=== PATIENT | male | born 1965 | race Caucasian/White ===

== ENCOUNTER 2019-03-17 08:02 | Day surgery (SDC) | payer MEDICARE ==
[2019-03-17] MEDS ORDERED: Sodium Chloride 0.9(Preservative Free) 10 ML IJ ONE (08:03)
[2019-03-17] MEDS ORDERED: Depo-Medrol 40 MG/ML IM ONE (08:03)
[2019-03-17] MEDS ORDERED: Ketamine HCl 50 MG/ML ONE (09:42)
[2019-03-17] MEDS ORDERED: DIPRIVAN 200 MG/20 ML IV ONE (09:42)
--- NOTE | 2019-03-17 12:03 | XRAY ---
Indication: Left L4-S1 GUICHO. Intraoperative fluoroscopy was provided for 39 seconds. 3 digital spot images submitted for interpretation demonstrates posterior needle tips projecting over the expected course of the left L4 and L5 nerve roots. Small amount of contrast injected for needle tip placement. Correlate with intraoperative findings/report. Incidental partially visualized posterior spinal hardware bilaterally.
--- NOTE | 2019-03-17 12:34 | XRAY ---
39 seconds fluoroscopy time in surgery for left L4-S1 transforaminal GUICHO.
[2019-03-17] MEDS ORDERED: Lactated Ringers 1,000 ML IV ONE (15:38)
== END 2019-03-17 10:13 | disposition home or self-care (01) ==
LOC: SDC-PAIN 08:02
PROVIDERS: ATTEND Psychiatry & Neurology Pain Medicine
DX: M54.16 Radiculopathy, lumbar region (principal); I10 Essential (primary) hypertension; E11.9 Type 2 diabetes mellitus without complications; J44.9 Chronic obstructive pulmonary disease, unspecified; Z86.718 Personal history of other venous thrombosis and embolism; Z86.73 Personal history of transient ischemic attack (TIA), and cerebral infarction without residual deficits; K21.9 Gastro-esophageal reflux disease without esophagitis; Z79.899 Other long term (current) drug therapy; Z79.01 Long term (current) use of anticoagulants
CPT/HCPCS: 64483; 64484; 72100; 77003; 82962; J1030; J2704; Q9966

== ENCOUNTER 2019-03-31 07:51 | Day surgery (SDC) | payer MEDICARE ==
[2019-03-31] MEDS ORDERED: Xylocaine-Mpf 2% 5 Ml Vial IJ ONE (07:52)
[2019-03-31] MEDS ORDERED: Ketamine HCl 50 MG/ML ONE (09:14)
[2019-03-31] MEDS ORDERED: DIPRIVAN 200 MG/20 ML IV ONE (09:14)
--- NOTE | 2019-03-31 10:17 | XRAY ---
Indication: Right C2-C4 MBB. Intraoperative fluoroscopy was provided for 34 seconds. 3 digital spot images submitted for interpretation demonstrates posterior needle tips projecting over the expected course of the right C2-C4 nerve roots. Correlate with intraoperative findings/report.
--- NOTE | 2019-03-31 10:20 | XRAY ---
34 seconds fluoroscopy time in surgery for right C2-C4 MBB.
[2019-03-31] MEDS ORDERED: Lactated Ringers 1,000 ML IV ONE (14:50)
== END 2019-03-31 09:46 | disposition home or self-care (01) ==
LOC: SDC-PAIN 07:51
PROVIDERS: ATTEND Psychiatry & Neurology Pain Medicine
DX: M47.812 Spondylosis without myelopathy or radiculopathy, cervical region (principal); E11.9 Type 2 diabetes mellitus without complications; I10 Essential (primary) hypertension; J44.9 Chronic obstructive pulmonary disease, unspecified; Z86.73 Personal history of transient ischemic attack (TIA), and cerebral infarction without residual deficits; Z86.718 Personal history of other venous thrombosis and embolism; K21.9 Gastro-esophageal reflux disease without esophagitis; G25.81 Restless legs syndrome; Z79.01 Long term (current) use of anticoagulants; Z79.899 Other long term (current) drug therapy
CPT/HCPCS: 64490; 64491; 72020; 77002; 82962; J2704

== ENCOUNTER 2019-04-21 09:36 | Day surgery (SDC) | payer MEDICARE ==
[2019-04-21] MEDS ORDERED: Decadron 4 MG INJ IV ONE (09:37)
[2019-04-21] MEDS ORDERED: Marcaine 0.5% SDV 10 ML IJ ONE (09:37)
[2019-04-21] MEDS ORDERED: Ketamine HCl 50 MG/ML ONE (10:36)
[2019-04-21] MEDS ORDERED: DIPRIVAN 200 MG/20 ML IV ONE (10:36)
--- NOTE | 2019-04-21 13:03 | XRAY ---
Indication: Right C2-C4 MBB. Intraoperative fluoroscopy was provided for 27 seconds. 2 digital spot images submitted for interpretation demonstrates posterior needle tips projecting over the expected course of the right C2-C4 nerve roots. Correlate with intraoperative findings/report.
--- NOTE | 2019-04-21 13:07 | XRAY ---
27 seconds fluoroscopy time in surgery for right C2-C4 MBB.
[2019-04-21] MEDS ORDERED: Lactated Ringers 1,000 ML IV ONE (13:41)
== END 2019-04-21 11:10 | disposition home or self-care (01) ==
LOC: SDC-PAIN 09:36
PROVIDERS: ATTEND Psychiatry & Neurology Pain Medicine
DX: M47.812 Spondylosis without myelopathy or radiculopathy, cervical region (principal); I10 Essential (primary) hypertension; J44.9 Chronic obstructive pulmonary disease, unspecified; E11.9 Type 2 diabetes mellitus without complications; G25.81 Restless legs syndrome; Z79.899 Other long term (current) drug therapy; Z79.01 Long term (current) use of anticoagulants; Z86.718 Personal history of other venous thrombosis and embolism; Z86.73 Personal history of transient ischemic attack (TIA), and cerebral infarction without residual deficits
CPT/HCPCS: 64490; 64491; 72020; 77002; 82962; J1100; J2704

== ENCOUNTER 2019-06-30 07:48 | Day surgery (SDC) | payer MEDICARE ==
[2019-06-30] MEDS ORDERED: Decadron 4 MG INJ IV ONE (07:49)
[2019-06-30] MEDS ORDERED: Xylocaine 1% Vial 30 ML PF IJ ONE (07:49)
[2019-06-30] MEDS ORDERED: Marcaine 0.5% SDV 10 ML IJ ONE (07:49)
[2019-06-30] MEDS ORDERED: DIPRIVAN 200 MG/20 ML IV ONE (08:26)
[2019-06-30] MEDS ORDERED: Ketamine HCl 50 MG/ML ONE (08:27)
--- NOTE | 2019-06-30 11:52 | XRAY ---
Indication: Right C2-C4 RFA. Intraoperative fluoroscopy was provided for 1 minute 7 seconds. 2 digital spot images submitted for interpretation demonstrates posterior needle tips projecting over the expected course the right C2-C4 nerve roots. Correlate with intraoperative findings/report.
--- NOTE | 2019-06-30 12:06 | XRAY ---
1 minute 8 seconds fluoroscopy time in surgery for right C2-C4 RFA.
[2019-06-30] MEDS ORDERED: Lactated Ringers 1,000 ML IV ONE (14:30)
== END 2019-06-30 10:20 | disposition home or self-care (01) ==
LOC: SDC-PAIN 07:48
PROVIDERS: ATTEND Psychiatry & Neurology Pain Medicine
DX: M47.812 Spondylosis without myelopathy or radiculopathy, cervical region (principal); I10 Essential (primary) hypertension; J44.9 Chronic obstructive pulmonary disease, unspecified; E11.9 Type 2 diabetes mellitus without complications; K21.9 Gastro-esophageal reflux disease without esophagitis; G25.81 Restless legs syndrome; Z86.718 Personal history of other venous thrombosis and embolism; Z79.899 Other long term (current) drug therapy
CPT/HCPCS: 64633; 64634; 72040; 77002; 82962; J1100; J2001; J2704

== ENCOUNTER 2020-05-31 08:53 | Day surgery (SDC) | payer MEDICARE ==
[2020-05-31] MEDS ORDERED: Sodium Chloride 0.9(Preservative Free) 10 ML IJ ONE (08:54)
[2020-05-31] MEDS ORDERED: Xylocaine 1% Vial 30 ML PF IJ ONE (08:54)
[2020-05-31] MEDS ORDERED: Depo-Medrol 40 MG/ML IM ONE (08:54)
[2020-05-31] MEDS ORDERED: DIPRIVAN 200 MG/20 ML IV ONE (09:35)
--- NOTE | 2020-05-31 10:49 | XRAY ---
Indication: Lumbar GUICHO. Intraoperative fluoroscopy provided for 28 seconds. Single digital spot image submitted for interpretation demonstrates midline posterior needle tip projecting approximately S1 level. Small amount of contrast injected for needle tip placement. Correlate with intraoperative findings/report. Incidental partially visualized bilateral posterior spinal hardware.
--- NOTE | 2020-05-31 11:29 | XRAY ---
28 seconds fluoroscopy time in surgery for lumbar GUICHO.
[2020-05-31] MEDS ORDERED: Lactated Ringers 1,000 ML IV ONE (16:09)
== END 2020-05-31 10:15 | disposition home or self-care (01) ==
LOC: SDC-PAIN 08:53
PROVIDERS: ATTEND Psychiatry & Neurology Pain Medicine
DX: M54.16 Radiculopathy, lumbar region (principal); E11.9 Type 2 diabetes mellitus without complications; I10 Essential (primary) hypertension; J44.9 Chronic obstructive pulmonary disease, unspecified; G25.81 Restless legs syndrome; Z86.718 Personal history of other venous thrombosis and embolism; Z86.73 Personal history of transient ischemic attack (TIA), and cerebral infarction without residual deficits; Z79.899 Other long term (current) drug therapy; K21.9 Gastro-esophageal reflux disease without esophagitis; Z79.01 Long term (current) use of anticoagulants
CPT/HCPCS: 62323; 72100; 77003; 82947; J1030; J2001; J2704; Q9966

== ENCOUNTER 2021-02-28 08:00 | Day surgery (SDC) | payer MEDICARE ==
[2021-02-28] MEDS ORDERED: Xylocaine 1% Vial 30 ML PF IJ ONE (08:01)
[2021-02-28] MEDS ORDERED: Decadron 4 MG INJ IV ONE (08:01)
[2021-02-28] MEDS ORDERED: BUPIVACAINE 0.5% VIAL IJ ONE (08:01)
[2021-02-28] MEDS ORDERED: DIPRIVAN 200 MG/20 ML IV ONE ×2 (09:36→10:04)
[2021-02-28] MEDS ORDERED: Lactated Ringers 1,000 ML IV ONE (10:02)
--- NOTE | 2021-02-28 11:07 | XRAY ---
Indication right C2-C4 RFA. Intraoperative fluoroscopy provided for 37 seconds. 2 digital spot image submitted for interpretation demonstrate posterior needle tips projecting over the expected right C2-C4 nerve roots. Correlate with intraoperative findings/report. Incidental partially visualized lower cervical fusion hardware.
--- NOTE | 2021-02-28 12:23 | XRAY ---
37 seconds of fluoroscopy was used in surgery for a C2-C4 RFA.
== END 2021-02-28 10:28 | disposition home or self-care (01) ==
LOC: SDC-PAIN 08:00
PROVIDERS: ATTEND Psychiatry & Neurology Pain Medicine
DX: M47.812 Spondylosis without myelopathy or radiculopathy, cervical region (principal); I10 Essential (primary) hypertension; E11.9 Type 2 diabetes mellitus without complications; Z79.01 Long term (current) use of anticoagulants; Z79.899 Other long term (current) drug therapy
CPT/HCPCS: 64633; 64634; 72040; 77002; 82947; 82962; J1100; J2001; J2704

== ENCOUNTER 2021-10-31 09:32 | Day surgery (SDC) | payer MEDICARE ==
[2021-10-31] MEDS ORDERED: Depo-Medrol 40 MG/ML IM ONE (09:33)
[2021-10-31] MEDS ORDERED: Sodium Chloride 0.9(Preservative Free) 10 ML IJ ONE (09:33)
[2021-10-31] MEDS ORDERED: DIPRIVAN 200 MG/20 ML IV ONE (11:00)
[2021-10-31] MEDS ORDERED: Lactated Ringers 1,000 ML IV ONE (14:27)
--- NOTE | 2021-10-31 18:12 | XRAY ---
Indication: Caudal GUICHO. Intraoperative fluoroscopy provided for 13 seconds. 2 digital spot image submitted for interpretation demonstrates caudal needle tip projecting mid sacrum. Small amount of contrast injected for needle tip placement. Correlate with intraoperative findings/report. Incidental incompletely visualized bilateral lumbosacral fusion hardware.
--- NOTE | 2021-10-31 18:31 | XRAY ---
13 seconds of fluoroscopy was used in surgery for a caudal GUICHO.
== END 2021-10-31 11:22 | disposition home or self-care (01) ==
LOC: SDC-PAIN 09:32
PROVIDERS: ATTEND Psychiatry & Neurology Pain Medicine
DX: M54.16 Radiculopathy, lumbar region (principal); E11.9 Type 2 diabetes mellitus without complications; Z79.899 Other long term (current) drug therapy
CPT/HCPCS: 62323; 72220; 77003; 82947; J1030; J2704; Q9966

== ENCOUNTER 2021-12-05 07:55 | Day surgery (SDC) | payer MEDICARE ==
[2021-12-05] MEDS ORDERED: Marcaine Mpf 0.5% Vial 30 Ml IJ ONE (07:56)
[2021-12-05] MEDS ORDERED: Decadron 4 MG INJ IV ONE (07:56)
[2021-12-05] MEDS ORDERED: Xylocaine 1% Vial 30 ML PF IJ ONE (07:56)
[2021-12-05] MEDS ORDERED: DIPRIVAN 200 MG/20 ML IV ONE (09:34)
--- NOTE | 2021-12-05 10:44 | XRAY ---
Indication: Right C2-C4 RFA. Intraoperative fluoroscopy provided for 31 seconds. 3 digital spot image submitted for interpretation demonstrates posterior needle tips projecting over the expected right C2-C4 nerve roots. Correlate with intraoperative findings/report. Incidental partially visualized lower cervical fusion hardware.
[2021-12-05] MEDS ORDERED: Lactated Ringers 1,000 ML IV ONE (12:23)
--- NOTE | 2021-12-05 12:57 | XRAY ---
31 seconds fluoroscopy time in surgery for right C2-C4 RFA.
== END 2021-12-05 10:15 | disposition home or self-care (01) ==
LOC: SDC-PAIN 07:55
PROVIDERS: ATTEND Psychiatry & Neurology Pain Medicine
DX: M47.812 Spondylosis without myelopathy or radiculopathy, cervical region (principal); E11.9 Type 2 diabetes mellitus without complications; Z79.899 Other long term (current) drug therapy
CPT/HCPCS: 64633; 64634; 72040; 77002; 82947; J1100; J2001; J2704

== ENCOUNTER 2022-02-06 06:52 | Day surgery (SDC) | payer MEDICARE ==
[2022-02-06] MEDS ORDERED: BUPIVACAINE 0.5% VIAL IJ ONE (06:53)
[2022-02-06] MEDS ORDERED: Depo-Medrol 40 MG/ML IM ONE (06:53)
[2022-02-06] MEDS ORDERED: DIPRIVAN 200 MG/20 ML IV ONE (08:46)
--- NOTE | 2022-02-06 10:30 | XRAY ---
Indication: Bilateral SI joint injection. Intraoperative fluoroscopy provided for 20 seconds. 4 digital spot image submitted for interpretation demonstrates posterior needle tip projecting over the left and right SI joint. Correlate with intraoperative findings/report. Incidental incompletely visualized bilateral lumbosacral fusion hardware and right hip arthroplasty.
--- NOTE | 2022-02-06 10:46 | XRAY ---
20 seconds of fluoroscopy was used in surgery for bilateral SI joint injections.
[2022-02-06] MEDS ORDERED: Lactated Ringers 1,000 ML IV ONE (12:49)
== END 2022-02-06 09:10 | disposition home or self-care (01) ==
LOC: SDC-PAIN 06:52
PROVIDERS: ATTEND Psychiatry & Neurology Pain Medicine
DX: M46.1 Sacroiliitis, not elsewhere classified (principal); E11.9 Type 2 diabetes mellitus without complications; Z79.899 Other long term (current) drug therapy
CPT/HCPCS: 01992; 27096; 72202; 77002; 82947; G0260; J1030; J2704

== ENCOUNTER 2022-06-19 07:59 | Day surgery (SDC) | payer MEDICARE ==
[2022-06-19] MEDS ORDERED: Depo-Medrol 40 MG/ML IM ONE (08:00)
[2022-06-19] MEDS ORDERED: Sodium Chloride 0.9(Preservative Free) 10 ML IJ ONE (08:00)
[2022-06-19] MEDS ORDERED: DIPRIVAN 200 MG/20 ML IV ONE (08:57)
[2022-06-19] MEDS ORDERED: Lactated Ringers 1,000 ML IV ONE (11:53)
--- NOTE | 2022-06-19 18:23 | XRAY ---
Indication: Caudal GUICHO. Intraoperative fluoroscopy provided for 10 seconds. 3 digital spot image submitted for interpretation demonstrates caudal needle tip projecting mid sacrum. Small amount of contrast injected for needle tip placement. Correlate with intraoperative findings/report.
--- NOTE | 2022-06-19 19:03 | XRAY ---
10 seconds of fluoroscopy was used in surgery for a caudal GUICHO.
== END 2022-06-19 09:25 | disposition home or self-care (01) ==
LOC: SDC-PAIN 07:59
PROVIDERS: ATTEND Psychiatry & Neurology Pain Medicine
DX: M54.16 Radiculopathy, lumbar region (principal); E11.9 Type 2 diabetes mellitus without complications; Z79.899 Other long term (current) drug therapy
CPT/HCPCS: 62323; 72220; 77003; 82947; J1030; J2704; Q9966

== ENCOUNTER 2022-12-12 00:56 | Emergency (ER) | payer MEDICARE ==
[2022-12-12] MEDS ORDERED: XYLOCAINE 1% HCL 20 ML MDV ONE (01:04)
[2022-12-12] MEDS ORDERED: CLEOCIN 150 MG CAPSULE PO ONE (01:13)
[2022-12-12 01:20] VITALS: RESP 20
[2022-12-12] MEDS ORDERED: Adacel Vial IM ONE ×2 (01:20→01:37)
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
[2022-12-12] MEDS ORDERED: CLEOCIN 150 MG CAPSULE ONE (01:36)
[2022-12-12 02:02] VITALS: BP 99/67; PULSE 74; O2SAT 95
== END 2022-12-12 02:08 | disposition home or self-care (01) ==
LOC: ED 00:56
DX: S81.811A Laceration without foreign body, right lower leg, initial encounter (principal); W26.0XXA Contact with knife, initial encounter; E11.9 Type 2 diabetes mellitus without complications; Z23 Encounter for immunization
CPT/HCPCS: 12001; 82947; 90471; 90715; 93005; 99283; A9270-GY

== ENCOUNTER 2022-12-18 06:40 | Day surgery (SDC) | payer MEDICARE ==
[2022-12-18] MEDS ORDERED: LIDOCAINE HCL 2% 100 MG/5 ML IJ ONE (06:41)
[2022-12-18] MEDS ORDERED: DIPRIVAN 200 MG/20 ML IV ONE (08:10)
[2022-12-18] MEDS ORDERED: Lactated Ringers 1,000 ML IV ONE (09:40)
--- NOTE | 2022-12-18 09:59 | XRAY ---
Indication: Left C2-C4 MBB. Intraoperative fluoroscopy provided for 22 seconds. 2 digital spot images submitted for interpretation demonstrates posterior needle tips projecting over the expected left C2-C4 nerve roots. Correlate with intraoperative findings/report. Incidental partially visualized lower cervical fusion hardware.
--- NOTE | 2022-12-18 12:12 | XRAY ---
22 seconds of fluoroscopy was used in surgery for a left C2-C4 MBB.
== END 2022-12-18 08:36 | disposition home or self-care (01) ==
LOC: SDC-PAIN 06:40
PROVIDERS: ATTEND Psychiatry & Neurology Pain Medicine
DX: M47.812 Spondylosis without myelopathy or radiculopathy, cervical region (principal); E11.9 Type 2 diabetes mellitus without complications; Z79.899 Other long term (current) drug therapy
CPT/HCPCS: 64490; 64491; 72040; 77002; 82947; J2704

== ENCOUNTER 2023-01-29 06:42 | Day surgery (SDC) | payer MEDICARE ==
[2023-01-29] MEDS ORDERED: BUPIVACAINE 0.5% VIAL IJ ONE (06:43)
[2023-01-29] MEDS ORDERED: DIPRIVAN 200 MG/20 ML IV ONE (08:37)
[2023-01-29] MEDS ORDERED: PHENYLEPHRINE HCL ONE (08:44)
--- NOTE | 2023-01-29 10:12 | XRAY ---
Indication: Left C2-C4 MBB. Intraoperative fluoroscopy provided for 15 seconds. 3 digital spot image submitted for interpretation demonstrates posterior needle tips projecting over the expected left C2-C4 nerve roots. Correlate with intraoperative findings/report. Incidental partially visualized lower cervical fusion hardware.
--- NOTE | 2023-01-29 10:44 | XRAY ---
15 seconds of fluoroscopy was used in surgery for a left C2-C4 MBB.
[2023-01-29] MEDS ORDERED: Lactated Ringers 1,000 ML IV ONE (15:27)
== END 2023-01-29 09:55 | disposition home or self-care (01) ==
LOC: SDC-PAIN 06:42
PROVIDERS: ATTEND Psychiatry & Neurology Pain Medicine
DX: M47.812 Spondylosis without myelopathy or radiculopathy, cervical region (principal); E11.9 Type 2 diabetes mellitus without complications; Z79.899 Other long term (current) drug therapy
CPT/HCPCS: 64490; 64491; 72040; 77002; 82947; J2371; J2704

== ENCOUNTER 2023-03-12 10:54 | Day surgery (SDC) | payer MEDICARE ==
[2023-03-12] MEDS ORDERED: XYLOCAINE-MPF 1% 5ML SDV IJ ONE (10:55)
[2023-03-12] MEDS ORDERED: BUPIVACAINE 0.5% VIAL IJ ONE (10:55)
[2023-03-12] MEDS ORDERED: Decadron 4 MG INJ IV ONE (10:55)
[2023-03-12] MEDS ORDERED: DIPRIVAN 200 MG/20 ML IV ONE (13:51)
[2023-03-12] MEDS ORDERED: Lactated Ringers 1,000 ML IV ONE (14:24)
--- NOTE | 2023-03-12 15:01 | XRAY ---
Indication: Left C2-C4 RFA. Intraoperative fluoroscopy provided for 24 seconds. 3 digital spot image submitted for interpretation demonstrates posterior needle tips projecting over the expect left C2-C4 nerve roots. Correlate with intraoperative findings/report. Incidental lower cervical fusion hardware.
--- NOTE | 2023-03-12 15:07 | XRAY ---
24 seconds of fluoroscopy was used in surgery for a left C2-C4 RFA.
== END 2023-03-12 14:40 | disposition home or self-care (01) ==
LOC: SDC-PAIN 10:54
PROVIDERS: ATTEND Psychiatry & Neurology Pain Medicine
DX: M47.812 Spondylosis without myelopathy or radiculopathy, cervical region (principal); E11.9 Type 2 diabetes mellitus without complications
CPT/HCPCS: 64633; 64634; 72040; 77002; 82947; J1100; J2704

== ENCOUNTER 2023-04-02 10:08 | Day surgery (SDC) | payer MEDICARE ==
[2023-04-02] MEDS ORDERED: Sodium Chloride 0.9(Preservative Free) 10 ML IJ ONE (10:09)
[2023-04-02] MEDS ORDERED: Decadron 4 MG INJ IV ONE (10:09)
[2023-04-02] MEDS ORDERED: DIPRIVAN 200 MG/20 ML IV ONE (11:52)
[2023-04-02] MEDS ORDERED: Lactated Ringers 2,000 ML IV ONE (13:25)
--- NOTE | 2023-04-02 14:12 | XRAY ---
Indication: Right L3-L5 transforaminal GUICHO. Intraoperative fluoroscopy provided for 33 seconds. 4 digital spot images submitted for interpretation demonstrates posterior needle tip projecting over the expected right L3 and L4 nerve roots. Small amount of contrast injected for needle tip placement. Correlate with intraoperative findings/report. Incidental incompletely visualized bilateral posterior spinal hardware
--- NOTE | 2023-04-02 14:34 | XRAY ---
33 seconds of fluoroscopy was used in surgery for a right L3-L5 transforaminal GUICHO.
== END 2023-04-02 12:50 | disposition home or self-care (01) ==
LOC: SDC-PAIN 10:08
PROVIDERS: ATTEND Psychiatry & Neurology Pain Medicine
DX: M54.16 Radiculopathy, lumbar region (principal); E11.9 Type 2 diabetes mellitus without complications
CPT/HCPCS: 64483; 64484; 72100; 77003; 82947; J1100; J2704; Q9966